=== PATIENT | female | born 1950 | race Caucasian/White ===

== ENCOUNTER 2024-04-16 07:21 | Outpatient (RCR) | payer MEDICARE, SELFPAY ==
[2024-04-16 12:27] LABS: Basophils Absolute Auto 0.1 10^3/uL (0.0-0.1); Basophils Percent Auto 1.1 % (0.2-2.0); Eosinophils Absolute Auto 0.1 10^3/uL (0.0-0.7); Eosinophils Percent Auto 2.6 % (0.9-7.0); Hematocrit 40.7 % (36.0-48.0); Hemoglobin 13.2 g/dL (12.0-16.0); Immature Granulocytes Abs Auto 0.02 10^3/uL (0.00-0.03); Immature Granulocytes Pct Auto 0.4 % (0.0-0.5); Lymphocytes Absolute Auto 1.6 10^3/uL (1.2-3.8); Lymphocytes Percent Auto 29.6 % (20.5-60.0); Mean Corpuscular HGB Conc 32.4 g/dL (29.9-35.2); Mean Corpuscular Hemoglobin 28.7 pg (26.7-34.0); Mean Corpuscular Volume 88.5 fL (81.0-99.0); Mean Platelet Volume 9.6 fL (9.5-13.5); Monocytes Absolute Auto 0.4 10^3/uL (0.3-0.8); Monocytes Percent Auto 7.5 % (1.7-12.0); Neutrophils Absolute Auto 3.1 10^3/uL (1.4-6.5); Neutrophils Percent Auto 58.8 % (43.0-75.0); Platelet Count 248 10^3/uL (150-450); Red Cell Distribution Width 13.7 % (11.0-15.0); White Blood Count 5.3 10^3/uL (4.0-11.0)
[2024-04-16 12:42] LABS: Alanine Aminotransferase 19 U/L (14-59); Albumin Level 3.5 g/dL (3.4-5.0); Alkaline Phosphatase 62 U/L (46-116); Anion Gap 9.3; Aspartate Amino Transferase 21 U/L (15-37); BUN Creatinine Ratio 11.2; Bilirubin Total 0.6 mg/dL (0.2-1.0); Calcium 9.1 mg/dL (8.5-10.1); Carbon Dioxide 30.1 mmol/L (21.0-32.0); Chloride 105 mmol/L (98-107); Estimated GFR (African America 56 (>=60); Estimated GFR (Non-African Ame 46 (>=60); Globulin 3.4 g/dL; Glucose 94 mg/dL (74-106); Potassium 4.4 mmol/L (3.5-5.1); Sodium 140 mmol/L (136-145); Total Protein 6.9 g/dL (6.4-8.2)
[2024-04-17 15:09] LABS: Albumin 3.6 g/dL (2.9-4.4); Alpha-1-Globulin 0.2 g/dL (0.0-0.4); Alpha-2-Globulin 0.7 g/dL (0.4-1.0); Gamma Globulin 0.8 g/dL (0.4-1.8); Immunoglobulin A, Qn, Serum 136 mg/dL (64-422); Immunoglobulin G, Qn, Serum 838 mg/dL (586-1602); Immunoglobulin M, Qn, Serum 52 mg/dL (26-217); Protein, Total 6.3 g/dL (6.0-8.5)
[2024-04-18 05:07] LABS: Protein C-Functional 136 % (73-180); Protein S, Free 112 % (61-136); Protein S, Total 111 % (60-150); Protein S-Functional 115 % (63-140)
[2024-04-18 18:08] LABS: Beta-2 Glycoprotein I Ab, IgA <9 (0-25); Beta-2 Glycoprotein I Ab, IgG <9 (0-20); Beta-2 Glycoprotein I Ab, IgM <9 (0-32)
== END 2024-04-16 15:44 | disposition home or self-care (01) ==
LOC: INF 07:21
PROVIDERS: PCP Internal Medicine; Visit Provider Internal Medicine Hematology & Oncology
DX: D64.9 Anemia, unspecified (principal); I26.09 Other pulmonary embolism with acute cor pulmonale; D68.69 Other thrombophilia; D75.9 Disease of blood and blood-forming organs, unspecified; Z86.711 Personal history of pulmonary embolism
CPT/HCPCS: 36415; 80053; 81241; 82784; 84155; 84165; 85025; 85210; 85302; 85303; 85305; 85306; 86146; 86147; 86148; 86334; G0463

== ENCOUNTER 2024-05-14 13:00 | Outpatient (RCR) | payer MEDICARE, SELFPAY | END 2024-05-16 15:36 | disposition home or self-care (01) | LOC: HEMC 13:00 | PROVIDERS: PCP Internal Medicine; Visit Provider Internal Medicine Hematology & Oncology | DX: I26.09 Other pulmonary embolism with acute cor pulmonale (principal); D68.69 Other thrombophilia; D64.9 Anemia, unspecified; Z86.711 Personal history of pulmonary embolism; D75.9 Disease of blood and blood-forming organs, unspecified | CPT/HCPCS: G0463 ==

== ENCOUNTER 2025-08-12 12:52 | Outpatient (RCR) | payer MEDICARE, SELFPAY | END 2025-09-05 23:59 | disposition home or self-care (01) | LOC: HEMC 12:52 | PROVIDERS: PCP Internal Medicine; Visit Provider Internal Medicine Hematology & Oncology | DX: D68.69 Other thrombophilia (principal); Z86.711 Personal history of pulmonary embolism; D64.9 Anemia, unspecified; D75.9 Disease of blood and blood-forming organs, unspecified; Z79.01 Long term (current) use of anticoagulants | CPT/HCPCS: G0463 ==